=== PATIENT | male | born 1975 ===

== ENCOUNTER 2019-01-20 19:36 | Emergency (ER) | payer MEDICAID, OTHER ==
[2019-01-20 20:00] VITALS: TEMP 99.1
[2019-01-20] MEDS ORDERED: Sodium Chloride 0.9% 1,000 ML IV STA (20:39)
[2019-01-20] MEDS ORDERED: Iohexol 240 (50 ml) ONE (20:44)
[2019-01-20 20:48] LABS: HEMOGLOBIN 16.2 g/dL (14.0-18.0); MEAN CELL VOLUME 83.5 fl (80.0-105.0); MEAN CORPUSCULAR HEMOGLOBIN 28.7 pg (25.0-35.0); MEAN CORPUSCULAR HGB CONC 34.4 g/dl (31.0-37.0); MEAN PLATELET VOLUME 10.7 fl (7.0-11.0); RBC 5.64 10^6/uL (3.5-6.1); RED CELL DISTRIBUTION WIDTH 12.5 % (11.5-14.5); WHITE BLOOD COUNT 10.8 10^3/uL (4.5-11.0)
--- NOTE | 2019-01-20 20:57 | ED PDOC ---
Arrival/HPI - General Chief Complaint: GI Problem Time Seen by Provider: 01/20/19 20:19 Historian: Patient - History of Present Illness Narrative History of Present Illness (Text): 01/20/19 20:54 43 year old male, with no significant past medical history, presents to the emergency department complaining of painful area to the umbilical abdominal region. Patient states he notes some protuberance to the area, which he has had for a while, but has recently become painful. Patient states pain sometimes radiates to his groin. 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 Patient states he did vomit once today. Patient denies any diarrhea, urinary symptoms, fever, chills, chest pain, shortness of breath, headache, dizziness, or any other complaint. Time/Duration: Prior to Arrival Symptom Onset: Gradual Symptom Course: Unchanged Activities at Onset: Light Context: Work Past Medical History - Provider Review Nursing Documentation Reviewed: Yes - Infectious Disease Hx of Infectious Diseases: None - Cardiac Hx Cardiac Disorders: Yes - Pulmonary Hx Respiratory Disorders: No - Neurological Hx Neurological Disorder: No - HEENT Hx HEENT Disorder: No - Renal Hx Renal Disorder: No - Endocrine/Metabolic Hx Endocrine Disorders: Yes Hx Diabetes Mellitus Type 2: Yes - Hematological/Oncological Hx Blood Disorders: No - Integumentary Hx Dermatological Disorder: No - Musculoskeletal/Rheumatological Hx Musculoskeletal Disorders: No - Gastrointestinal Hx Gastrointestinal Disorders: No - Genitourinary/Gynecological Hx Genitourinary Disorders: No - Psychiatric Hx Psychophysiologic Disorder: No Hx Substance Use: No - Anesthesia Hx Anesthesia: No Family/Social History - Physician Review Nursing Documentation Reviewed: Yes Family/Social History: No Known Family HX Smoking Status: Never Smoked Hx Alcohol Use: Yes Frequency of alcohol use: Socially Hx Substance Use: No Allergies/Home Meds Allergies/Adverse Reactions: Allergies No Known Allergies Allergy (Verified 01/20/19 19:59) Home Medications: Home Meds Medication Instructions Recorded Confirmed Unobtainable 01/20/19 01/20/19 Review of Systems - Physician Review All systems were reviewed & negative as marked: Yes - Review of Systems Constitutional: absent: Fevers, Night Sweats Respiratory: absent: SOB Cardiovascular: absent: Chest Pain Gastrointestinal: Abdominal Pain, Vomiting. absent: Diarrhea Genitourinary Male: Normal. absent: Dysuria, Urinary Output Changes Neurological: absent: Headache, Dizziness Physical Exam Vital Signs Reviewed: Yes Vital Signs Temp Pulse Resp BP Pulse Ox 01/20/19 19:59 99.1 F 76 15 129/73 96 Temperature: Afebrile Blood Pressure: Normal Pulse: Regular Respiratory Rate: Normal Appearance: Positive for: Well-Appearing, Non-Toxic, Comfortable Pain Distress: None Mental Status: Positive for: Alert and Oriented X 3 - Systems Exam Head: Present: Atraumatic, Normocephalic Pupils: Present: PERRL Extroacular Muscles: Present: EOMI Conjunctiva: Present: Normal Mouth: Present: Moist Mucous Membranes Neck: Present: Normal Range of Motion Respiratory/Chest: Present: Clear to Auscultation, Good Air Exchange. No: Respiratory Distress, Accessory Muscle Use Cardiovascular: Present: Regular Rate and Rhythm, Normal S1, S2. No: Murmurs Abdomen: Present: Tenderness, Normal Bowel Sounds, Hernias (Umbilical hernia; reducibale, but tender to palpation). No: Distention Genitourinary Male: Present: Normal External Genitalia, Other (testes descended bilaterally). No: Hernias (no inguinal hernia), Testicle Swelling Back: Present: Normal Inspection Upper Extremity: Present: Normal Inspection. No: Cyanosis, Edema Lower Extremity: Present: Normal Inspection. No: Edema Neurological: Present: GCS=15, CN II-XII Intact, Speech Normal Skin: Present: Warm, Dry, Normal Color. No: Rashes Psychiatric: Present: Alert, Oriented x 3, Normal Insight, Normal Concentration Medical Decision Making ED Course and Treatment: 01/20/19 21:04 Impression: 43 year old male presents with umbilical hernia. Plan: -- CT ABD & Pelvis -- CMP, Lipase -- Toradol -- Urinalysis -- Reassess and disposition Prior Visits: Notes and results from previous visits were reviewed. Progress Notes: 01/21/19 02:57 EXAM: CT Abdomen and Pelvis with IV and oral contrast CLINICAL HISTORY: ABDOMINAL PAIN/HERNIA TECHNIQUE: Axial computed tomography images of the abdomen and pelvis with intravenous contrast. 1179.64 mGy-cm CONTRAST: With; OMNI 350 100 ml COMPARISON: None provided. FINDINGS: LUNG BASES: The lung bases appear clear. No pleural effusions are seen. LIVER: There is hepatomegaly. The liver measured 19.8 cm in the midclavicular line. GALLBLADDER AND BILE DUCTS: The gallbladder appears within normal limits. No radioopaque gallstones are seen. No biliary ductal dilatation is evident. PANCREAS: Unremarkable. SPLEEN: There is mild splenomegaly. The spleen measured 15.0 x 6.7 cm in craniocaudal and transverse dimensions respectively. ADRENAL GLANDS: Unremarkable. KIDNEYS, URETERS, AND BLADDER: The kidneys appear within normal limits. There is no hydronephrosis or hydroure ter. No urinary calculi are seen. The urinary bladder appeared normal in size and configuration. STOMACH AND BOWEL: Unremarkable appearance of the stomach and bowel. No evidence of bowel obstruction. No evidence suggesting enteritis or colitis. APPENDIX: No evidence of acute appendicitis on CT examination. PERITONEUM: No free fluid. No free air. A moderate sized paraumbilical hernia is noted which contains fat. Additionally, a small left inguinal hernia is noted which contains fat. LYMPH NODES: No lymphadenopathy is evident. REPRODUCTIVE: Unremarkable as visualized. VASCULATURE: No evidence of abdominal aortic aneurysm. BONES: No aggressive appearing osseous lesion. No acute osseous pathology evident. IMPRESSION: 1. No acute intra-abdominal or pelvic abnormality. 2. Hepatomegaly. 3. Splenomegaly. 4. Moderate size left paraumbilical hernia which contains fat. 5. Small left inguinal hernia containing fat. Electronically signed on January 20, 2019 11:55:46 PM EDT by: Zhou Tinoco M.D., M.B.A., Certified By [employer] Trained MRI and CT Specialist 01/21/19 04:27 Patient was seen by the surgeon in the ED.Hernia easily reducible .Patient w/o any pain.Ct results explained to patient.Prefers out patient follow up with the surgeon for consideration of repair.Full follow care instructions given. - RAD Interpretation Radiology Orders: 01/20/19 20:38 ABD PELVIS PO & IV CONTRAST [CT] Stat - Medication Orders Current Medication Orders: Sodium Chloride (Sodium Chloride 0.9%) 1,000 mls @ 999 mls/hr IV .Q1H1M STA Stop: 01/20/19 21:39 Discontinued Medications Ketorolac Tromethamine (Toradol) 30 mg IVP ONCE ONE Stop: 01/20/19 20:40 - Scribe Statement The provider has reviewed the documentation as recorded by the Mariolaibjuany Antunez Provider Scribe Attestation: All medical record entries made by the Scribe were at my direction and personally dictated by me. I have reviewed the chart and agree that the record accurately reflects my personal performance of the history, physical exam, medical decision making, and the department course for this patient. I have also personally directed, reviewed, and agree with the discharge instructions and disposition. Disposition/Present on Arrival - Present on Arrival Any Indicators Present on Arrival: No History of DVT/PE: No History of Uncontrolled Diabetes: No Urinary Catheter: No History of Decub. Ulcer: No History Surgical Site Infection Following: None - Disposition Have Diagnosis and Disposition been Completed?: Yes Diagnosis: Umbilical hernia Disposition: HOME/ ROUTINE Disposition Time: 04:25 Patient Plan: Discharge Patient Problems: Current Active Problems Problem Status Onset Umbilical hernia Acute Condition: GOOD Discharge Instructions (ExitCare): Abdominal Hernia (DC) Additional Instructions: Avoid lifting heavy objects/follow up with your surgeon this week/any recurrent symptoms i.e. pain/vomiting,ecc. return to the emergency room Referrals: Kranthi Luna MD [Staff Provider] - Follow up with primary Forms: [facility] (Sinhala), WORK NOTE
[2019-01-20 20:59] LABS: VENOUS BLOOD GAS BASE EXCESS 0.8 mmol/L (0.0-2.0); VENOUS BLOOD GAS PO2 128 mm/Hg (30-55); VENOUS BLOOD PH 7.39 (7.32-7.43)
[2019-01-20 21:04] LABS: BLOOD UREA NITROGEN 21 mg/dL (7-21); CALCIUM 9.1 mg/dL (8.4-10.5); GFR NON-AFRICAN AMERICAN > 60; LIPASE 106 U/L (23-300)
[2019-01-20 21:24] LABS: ALB/GLOB RATIO 1.3 (1.1-1.8); ALBUMIN 4.3 g/dL (3.0-4.8); ALT/SGPT 29 U/L (7-56); AST/SGOT 29 U/L (17-59)
[2019-01-20] MEDS ORDERED: Iohexol 350 MG/100 ML VIAL ONE (21:47)
[2019-01-21 01:39] LABS: PH,URINE 6.5 (4.7-8.0); URINE BILIRUBIN NEGATIVE (NEGATIVE); URINE BLOOD NEGATIVE (NEGATIVE); URINE GLUCOSE (UA) NEGATIVE (NEGATIVE); URINE LEUKOCYTE ESTERASE NEGATIVE Leu/uL (NEGATIVE); URINE PROTEIN NEGATIVE mg/dL (<30 mg/dL); URINE UROBILINOGEN 0.2 E.U./dL (<1 E.U./dL)
[2019-01-21 01:43] LABS: URINE APPEARANCE CLEAR (CLEAR); URINE COLOR YELLOW (YELLOW)
--- NOTE | 2019-01-21 04:02 | CP.PCM.PCO ---
Additional Comments - Additional Comments Additional Comments: General Surgery Dr. Colin 43 y/o M w/ para-umbilical hernia presents to the ED c/o abd pain x5 days. Pain constant and worse than usual w/ radiation to L groin. 1 episode vomiting. denies F/C, nausea, distention, D/C, dysuria. CT A/P showed fat-containing umbilical hernia. Hernia was reduced in the ED and pain improved. Explained benefits of surgery now vs later. With hernia reduced and pain improving, pt elected for outpatient hernia repair when off work. Instructed pt to follow up w/ surgery attending as outpatient to schedule elective hernia repair. Also recommended pt return to the ED if pain returns/worsens, hernia does not reduce, &/or nausea/vomiting develop. Pt expressed understanding. Plan was discussed w/ ED and surgical attending. Milli Hough PGY3
[2019-01-21 05:12] VITALS: BP 127/71; PULSE 75; RESP 16; O2SAT 98
--- NOTE | 2019-01-21 11:06 | CT ---
Date of service: 01/20/2019 PROCEDURE: CT Abdomen and Pelvis with contrast HISTORY: abdominal pain/hernia COMPARISON: None. TECHNIQUE: Intravenous contrast dose: 100 cc Omnipaque 350. Radiation dose: Total exam DLP = 1179.64 mGy-cm. This CT exam was performed using one or more of the following dose reduction techniques: Automated exposure control, adjustment of the mA and/or kV according to patient size, and/or use of iterative reconstruction technique. FINDINGS: LOWER THORAX: Unremarkable. LIVER: Hepatomegaly. Hepatic steatosis. No focal masses. No intrahepatic bile duct dilatation or perihepatic ascites. GALLBLADDER AND BILE DUCTS: Unremarkable. PANCREAS: Unremarkable. No gross lesion or ductal dilatation. SPLEEN: Unremarkable. ADRENALS: Unremarkable. No mass. KIDNEYS AND URETERS: Unremarkable. No hydronephrosis. No solid mass. VASCULATURE: Unremarkable. No aortic aneurysm. No atherosclerotic calcification or mural plaque present. BOWEL: Diverticulosis without an acute inflammatory component or other associated pathologic process. APPENDIX: A normal appendix is visualized in it's entirety. PERITONEUM: Unremarkable. No free fluid. No free air. LYMPH NODES: Unremarkable. No enlarged lymph nodes. BLADDER: Unremarkable. REPRODUCTIVE: Unremarkable. BONES: No acute fracture. OTHER FINDINGS: Large anterior abdominal wall hernia containing fat only. IMPRESSION: Hepatomegaly/hepatic steatosis. Periumbilical anterior abdominal wall hernia containing fat only. No acute findings related to/ accounting for the clinical presentation. Concordant results (preliminary interpretation) provided by [facility]. Procedure Completed: 22:42 Preliminary Report: Interpreted and electronically signed: 23:55. Final Interpretation: 11:03. January 21, 2019.
== END 2019-01-21 05:00 | disposition home or self-care (01) ==
LOC: ED 19:36
DX: K42.9 Umbilical hernia without obstruction or gangrene (principal); E11.9 Type 2 diabetes mellitus without complications
CPT/HCPCS: 74177; 80053; 81003; 82803; 83690; 85027; 96361; 96374; 99284; J1885; J7030; Q9966; Q9967

== ENCOUNTER 2019-01-21 16:07 | Observation (INO) | payer MEDICAID, OTHER ==
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
[2019-01-21] MEDS ORDERED: Dextrose 5%/0.45% NS 1,000 ML IV SCH (17:45)
[2019-01-21 18:12] LABS: INR 0.87; PARTIAL THROMBOPLASTIN TIME 30.9 Seconds (26.9-38.3)
[2019-01-21] MEDS: Sodium Chloride 0.9% 1,000 ML IV SCH (18:21)
[2019-01-21 18:22] LABS: PROTHROMBIN TIME 9.7 SECONDS (9.4-12.5)
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
--- NOTE | 2019-01-21 20:28 | CARD ---
APPROVED REPORT Date of service: 01/21/2019 EKG Measurement Heart [id number] <Conclusion> Normal sinus rhythm Normal ECG
[2019-01-21] MEDS ORDERED: Dextrose 50% SYRINGE Inj (50 ml) IV PRN (21:23)
[2019-01-21] MEDS ORDERED: Insulin Reg-MEDIUM-Coverage SC SCH (22:00)
[2019-01-22 00:08] VITALS: BMI 40.3
[2019-01-22] MEDS ORDERED: Pneumococcal 23-Valent Vaccine IM ONE (00:08)
[2019-01-22] MEDS: Insulin Reg-LOW-Coverage SC SCH ×3 (06:09→17:02)
[2019-01-22 07:23] LABS: BASO # 0.01 K/mm3 (0.0-2.0); BASO % 0.1 % (0.0-3.0); EOS # 0.3 (0.0-0.7); EOS % 3.9 % (1.5-5.0); HEMOGLOBIN 14.4 g/dL (14.0-18.0); LYMPH # 2.8 (1.2-3.4); LYMPH % 34.1 % (22.0-35.0); MEAN CELL VOLUME 84.5 fl (80.0-105.0); MEAN CORPUSCULAR HEMOGLOBIN 27.6 pg (25.0-35.0); MEAN CORPUSCULAR HGB CONC 32.7 g/dl (31.0-37.0); MEAN PLATELET VOLUME 10.3 fl (7.0-11.0); MONO # 0.4 (0.1-0.6); RBC 5.21 10^6/uL (3.5-6.1); RED CELL DISTRIBUTION WIDTH 12.4 % (11.5-14.5); WHITE BLOOD COUNT 8.3 10^3/uL (4.5-11.0)
[2019-01-22 07:32] LABS: INR 0.96; PARTIAL THROMBOPLASTIN TIME 31.5 Seconds (26.9-38.3); PROTHROMBIN TIME 10.9 SECONDS (9.4-12.5)
[2019-01-22 07:46] LABS: ALB/GLOB RATIO 1.3 (1.1-1.8); ALBUMIN 3.6 g/dL (3.0-4.8); ALT/SGPT 26 U/L (7-56); AST/SGOT 23 U/L (17-59); BLOOD UREA NITROGEN 16 mg/dL (7-21); CALCIUM 8.5 mg/dL (8.4-10.5); GFR NON-AFRICAN AMERICAN > 60
[2019-01-22] MEDS ORDERED: Bupivacaine 0.5% 50 ML IJ ONE (10:44)
[2019-01-22] MEDS ORDERED: Lidocaine 1% Inj (20ml) ONE (10:44)
[2019-01-22] MEDS ORDERED: Propofol 10 mg/ml Inj (20 ML) ONE (11:43)
[2019-01-22] MEDS ORDERED: Midazolam 2 MG/2 ML VIAL ONE (11:44)
[2019-01-22] MEDS ORDERED: Rocuronium 10 mg/ml (5 ml) ONE (11:44)
[2019-01-22] MEDS ORDERED: Succinylcholine 200 mg/10 ml Inj IV ONE (11:44)
[2019-01-22] MEDS ORDERED: CeFAZolin 1 gm in NS 100ml IVPB ONE (12:22)
[2019-01-22] MEDS ORDERED: Neostigmine Methylsulfate 3mg/3ml Syringe IV ONE (12:45)
[2019-01-22] MEDS ORDERED: Bupivacaine 0.5% Inj(30mL) IJ ONE (13:14)
[2019-01-22] MEDS: HYDROmorphone 0.5 mg/0.5 ml ISec IVP PRN ×2 (13:38→13:53)
--- NOTE | 2019-01-22 13:38 | PCM.SURG1 ---
Surgeon's Initial Post Op Note - Surgeon's Notes Surgeon: Dr. Colin Freight Shipping Agent: Dr. Hough PGY3 Type of Anesthesia: General Endo Pre-Operative Diagnosis: incarcerated ventral hernia Operative Findings: see dictation Post-Operative Diagnosis: same Operation Performed: open ventral hernia repair with mesh Specimen/Specimens Removed: none Estimated Blood Loss: EBL {In ML}: 5 Blood Products Given: N/A Drains Used: No Drains Post-Op Condition: Good Date of Surgery/Procedure: 01/22/19 Time of Surgery/Procedure: 13:38
[2019-01-22] MEDS ORDERED: Oxycodone/Acetaminophen 5/325 mg Tab PO PRN (13:41)
[2019-01-22] MEDS ORDERED: HYDROmorphone 0.5 mg/0.5 ml ISec ONE ×2 (13:41→13:56)
[2019-01-22] MEDS ORDERED: Lactated Ringer's 1,000 ML IV SCH (13:45)
[2019-01-22 13:51] VITALS: RESP 16; TEMP 98.4; O2SAT 95
[2019-01-22 14:39] VITALS: BP 122/72; PULSE 81
[2019-01-22] MEDS: Sodium Chloride 0.9% 1,000 ML IV SCH (15:00)
[2019-01-22] MEDS ORDERED: Insulin Reg-LOW-Coverage SC SCH (17:00)
--- NOTE | 2019-01-22 19:33 | CP.PCM.DIS ---
<MikeBridger romano - Last Filed: 01/22/19 19:22> Provider - Provider Date of Admission: 01/21/19 17:46 Attending physician: Mary Alice Duggan MD Primary care physician: NO PRIMARY CARE PROVIDER Consults: 01/21/19 16:22 Consult [Physician Consult] Stat Comment: call Consulting Provider: Addy Colin Consulting Physician: Addy Colin Reason for Consult: hernia 01/22/19 00:09 Diabetic Education Referral Routine Comment: TEACHING NEEDED,PT IS NOT MEDS,IMPT. OF COMPLIANCE Physician Instructions: Reason For Exam: EVALUATION'' Time Spent in preparation of Discharge (in minutes): 40 Diagnosis - Discharge Diagnosis (1) Umbilical hernia Status: Acute Hospital Course - Lab Results Lab Results: Most Recent Lab Values WBC 8.3 10^3/uL (4.5-11.0) D 01/22/19 07:05 RBC 5.21 10^6/uL (3.5-6.1) 01/22/19 07:05 Hgb 14.4 g/dL (14.0-18.0) 01/22/19 07:05 Hct 44.0 % (42.0-52.0) 01/22/19 07:05 MCV 84.5 fl (80.0-105.0) 01/22/19 07:05 MCH 27.6 pg (25.0-35.0) 01/22/19 07:05 MCHC 32.7 g/dl (31.0-37.0) 01/22/19 07:05 RDW 12.4 % (11.5-14.5) 01/22/19 07:05 Plt Count 242 10^3/uL (120.0-450.0) 01/22/19 07:05 MPV 10.3 fl (7.0-11.0) 01/22/19 07:05 Neut % (Auto) 56.9 % (50.0-68.0) 01/22/19 07:05 Lymph % (Auto) 34.1 % (22.0-35.0) 01/22/19 07:05 Hettinger % (Auto) 5.0 % (1.0-6.0) 01/22/19 07:05 Eos % (Auto) 3.9 % (1.5-5.0) 01/22/19 07:05 Baso % (Auto) 0.1 % (0.0-3.0) 01/22/19 07:05 Lymph # (Auto) 2.8 (1.2-3.4) 01/22/19 07:05 Hettinger # (Auto) 0.4 (0.1-0.6) 01/22/19 07:05 Eos # (Auto) 0.3 (0.0-0.7) 01/22/19 07:05 Baso # (Auto) 0.01 K/mm3 (0.0-2.0) 01/22/19 07:05 Absolute Neuts (auto) 4.70 (1.4-6.5) 01/22/19 07:05 PT 10.9 SECONDS (9.4-12.5) 01/22/19 07:05 INR 0.96 01/22/19 07:05 APTT 31.5 Seconds (26.9-38.3) 01/22/19 07:05 Sodium 140 mmol/L (132-148) 01/22/19 07:05 Potassium 4.3 mmol/L (3.6-5.0) 01/22/19 07:05 Chloride 107 mmol/L (98-107) 01/22/19 07:05 Carbon Dioxide 29 mmol/L (21-33) 01/22/19 07:05 Anion Gap 9 (10-20) L 01/22/19 07:05 BUN 16 mg/dL (7-21) 01/22/19 07:05 Creatinine 0.7 mg/dl (0.8-1.5) L 01/22/19 07:05 Est GFR ( Amer) > 60 01/22/19 07:05 Est GFR (Non-Af Amer) > 60 01/22/19 07:05 POC Glucose (mg/dL) 122 mg/dL (65-110) H 01/22/19 11:28 Random Glucose 215 mg/dL (70-110) H 01/22/19 07:05 Calcium 8.5 mg/dL (8.4-10.5) 01/22/19 07:05 Total Bilirubin 0.4 mg/dL (0.2-1.3) 01/22/19 07:05 AST 23 U/L (17-59) 01/22/19 07:05 ALT 26 U/L (7-56) 01/22/19 07:05 Alkaline Phosphatase 51 U/L (38-126) 01/22/19 07:05 Troponin I < 0.01 ng/mL 01/21/19 17:45 Total Protein 6.4 g/dL (5.8-8.3) 01/22/19 07:05 Albumin 3.6 g/dL (3.0-4.8) 01/22/19 07:05 Globulin 2.8 gm/dL 01/22/19 07:05 Albumin/Globulin Ratio 1.3 (1.1-1.8) 01/22/19 07:05 Blood Type A POSITIVE 01/22/19 07:05 Blood Type Confirm A POSITIVE 01/22/19 08:45 Antibody Screen Negative 01/22/19 07:05 BBK History Checked No verified bt 01/22/19 07:05 - Hospital Course Hospital Course: Bridger Mike DO PGY1 Internal Medicine Router Operator Radial - Hospitalist Discharge Summary Upon admission, Patient is a 43M w/ PMH DM, HLD c/o worsening pain from his hernia over the past 10 days. Patient reported hernia has been present over the 6-7 years. Pain is described as a sharp intermittent pain which worsens w/ eating. He denies any melena or hematochezia. Patient reports pain is located in the periumbilical region however it does radiate bilaterally in a belt like distribution w/ some radiation into the lower abdomen/ groin. Patient also reports some complaints of bilateral upper chest pain. He reports pain is a sharp sensation which radiates in to his neck and BL upper extremities; worse w/ exertion and palpitation. Patient underwent open ventral hernia repair w/ mesh on 01/22 w/ Dr. Colin. Patient was seen and evaluated post operatively; tolerating pain well ; tolerating diet well. Voicing no complaints. Appt was made for follow up at [facility]; He was also told to follow up w/ Dr. Colin He was explained that he will need to follow up with [facility] care in order to attend his apt w/ Dr. Sy at [facility]. Patient was seen, examined and discussed w/ attending Dr. Olga Lidia Mike DO PGY1 Discharge Exam - Head Exam Head Exam: ATRAUMATIC, NORMOCEPHALIC - Eye Exam Eye Exam: EOMI, Normal appearance, PERRL - Respiratory Exam Respiratory Exam: Clear to PA & Lateral, UNREMARKABLE - Cardiovascular Exam Cardiovascular Exam: RRR. absent: Systolic Murmur - GI/Abdominal Exam GI & Abdominal Exam: Distended, Normal Bowel Sounds, Tenderness (Mild diffuse ). absent: Unremarkable Additional comments: Midline Dressing CDI - Extremities Exam Extremities exam: normal capillary refill, pedal pulses present - Neurological Exam Neurological exam: Alert, CN II-XII Intact, Oriented x3 - Psychiatric Exam Psychiatric exam: Normal Affect, Normal Mood - Skin Skin Exam: Dry, Normal Color, Warm Discharge Plan - Discharge Medications Prescriptions: metFORMIN ER [glucoPHAGE XR] 500 mg PO BID #60 ter oxyCODONE/Acetaminophen [Percocet 5/325 mg Tab] 1 ea PO Q12 #10 tab - Follow Up Plan Condition: GOOD Disposition: HOME/ ROUTINE Instructions: Type 2 Diabetes, Hernia Repair (DC), Diabetic Meal Planning , Open Herniorrhaphy (DC) Additional Instructions: You have been discharged from [facility]. If you notice any severe pain, bleeding or nausea please go to the nearest emergency room. Please follow up w/ Dr. Sy 01/29/2019 @ 2pm Please follow up w/ Dr. Colin within 3-5 days of discharge Start taking metformin 500mg twice a day Take percocet 5/325mg as needed for pain every 12 hours; This is a narcotic pain medication do not take w/ alcohol, operate cars/machinery Referrals: PCP,NO [Primary Care Provider] - <Mary Alice Duggan - Last Filed: 01/23/19 13:59> Provider - Provider Date of Admission: 01/21/19 17:46 Attending physician: Mary Alice Duggan MD Primary care physician: ESTRELLITA PRIMARY CARE PROVIDER Consults: 01/21/19 16:22 Consult [Physician Consult] Stat Comment: call Consulting Provider: Addy Colin Consulting Physician: Addy Colin Reason for Consult: hernia 01/22/19 00:09 Diabetic Education Referral Routine Comment: TEACHING NEEDED,PT IS NOT MEDS,IMPT. OF COMPLIANCE Physician Instructions: Reason For Exam: EVALUATION'' Hospital Course - Lab Results Lab Results: Most Recent Lab Values WBC 8.3 10^3/uL (4.5-11.0) D 01/22/19 07:05 RBC 5.21 10^6/uL (3.5-6.1) 01/22/19 07:05 Hgb 14.4 g/dL (14.0-18.0) 01/22/19 07:05 Hct 44.0 % (42.0-52.0) 01/22/19 07:05 MCV 84.5 fl (80.0-105.0) 01/22/19 07:05 MCH 27.6 pg (25.0-35.0) 01/22/19 07:05 MCHC 32.7 g/dl (31.0-37.0) 01/22/19 07:05 RDW 12.4 % (11.5-14.5) 01/22/19 07:05 Plt Count 242 10^3/uL (120.0-450.0) 01/22/19 07:05 MPV 10.3 fl (7.0-11.0) 01/22/19 07:05 Neut % (Auto) 56.9 % (50.0-68.0) 01/22/19 07:05 Lymph % (Auto) 34.1 % (22.0-35.0) 01/22/19 07:05 Hettinger % (Auto) 5.0 % (1.0-6.0) 01/22/19 07:05 Eos % (Auto) 3.9 % (1.5-5.0) 01/22/19 07:05 Baso % (Auto) 0.1 % (0.0-3.0) 01/22/19 07:05 Lymph # (Auto) 2.8 (1.2-3.4) 01/22/19 07:05 Hettinger # (Auto) 0.4 (0.1-0.6) 01/22/19 07:05 Eos # (Auto) 0.3 (0.0-0.7) 01/22/19 07:05 Baso # (Auto) 0.01 K/mm3 (0.0-2.0) 01/22/19 07:05 Absolute Neuts (auto) 4.70 (1.4-6.5) 01/22/19 07:05 PT 10.9 SECONDS (9.4-12.5) 01/22/19 07:05 INR 0.96 01/22/19 07:05 APTT 31.5 Seconds (26.9-38.3) 01/22/19 07:05 Sodium 140 mmol/L (132-148) 01/22/19 07:05 Potassium 4.3 mmol/L (3.6-5.0) 01/22/19 07:05 Chloride 107 mmol/L (98-107) 01/22/19 07:05 Carbon Dioxide 29 mmol/L (21-33) 01/22/19 07:05 Anion Gap 9 (10-20) L 01/22/19 07:05 BUN 16 mg/dL (7-21) 01/22/19 07:05 Creatinine 0.7 mg/dl (0.8-1.5) L 01/22/19 07:05 Est GFR ( Amer) > 60 01/22/19 07:05 Est GFR (Non-Af Amer) > 60 01/22/19 07:05 POC Glucose (mg/dL) 288 mg/dL (65-110) H 01/22/19 15:59 Random Glucose 215 mg/dL (70-110) H 01/22/19 07:05 Calcium 8.5 mg/dL (8.4-10.5) 01/22/19 07:05 Total Bilirubin 0.4 mg/dL (0.2-1.3) 01/22/19 07:05 AST 23 U/L (17-59) 01/22/19 07:05 ALT 26 U/L (7-56) 01/22/19 07:05 Alkaline Phosphatase 51 U/L (38-126) 01/22/19 07:05 Troponin I < 0.01 ng/mL 01/21/19 17:45 Total Protein 6.4 g/dL (5.8-8.3) 01/22/19 07:05 Albumin 3.6 g/dL (3.0-4.8) 01/22/19 07:05 Globulin 2.8 gm/dL 01/22/19 07:05 Albumin/Globulin Ratio 1.3 (1.1-1.8) 01/22/19 07:05 Blood Type A POSITIVE 01/22/19 07:05 Blood Type Confirm A POSITIVE 01/22/19 08:45 Antibody Screen Negative 05/30/19 07:05 BBK History Checked No verified bt 01/22/19 07:05 Attending/Attestation - Attestation I have personally seen and examined this patient.: Yes I have fully participated in the care of the patient.: Yes I have reviewed all pertinent clinical information, including history, physical exam and plan: Yes Notes (Text): 01/23/19 13:58 Attending note; Patient seen and examined with resident. Patient is alert and awake. Complaining of mild abdominal discomfort. Complaining of nausea. Denies any chest pain, shortness of breath. Patient is a 43-year-old male with PMH DM, HLD not on medications is admitted with abdominal pain and nausea and vomiting for the past few days. 1. Status post umbilical hernia repair. Patient is tolerating diet. Denies any nausea, vomiting. Ambulating without any difficulty. Surgery evaluation appreciated. 2. Diabetes; patient is not on any medications at home. Started on metformin. 3. Obesity; diet, exercise and weight reduction advised. Patient will be discharged home today. Follow-up with surgery in 1 week. Upon discharge the patient will follow up with [facility] clinic.
--- NOTE | 2019-01-23 14:58 | OP ---
PROCEDURE DATE: 01/22/2019 SURGEON: Addy Colin MD PEARL GLUE DRIER: Milli Hough, PGY-3. TYPE OF ANESTHESIA: General endotracheal. ANESTHESIOLOGIST: Olivier Metz MD PREOPERATIVE DIAGNOSIS: Incarcerated umbilical hernia. POSTOPERATIVE DIAGNOSIS: Incarcerated umbilical hernia. PROCEDURE PERFORMED: Open ventral hernia repair with mesh. EBL: 5 mL. SPECIMENS: No specimens. DESCRIPTION OF PROCEDURE: After consent was obtained, the patient was brought to the operating room and placed on the operating table in supine position. General anesthesia was induced, and the patient was then prepped and draped in the usual sterile fashion. A timeout was completed verifying correct patient, procedure site, positioning. Antibiotics were administered prior to the incision. A curvilinear infraumbilical incision was made in the abdominal wall and carried down through the subcutaneous fat to the fascia below. The hernia sac was then dissected from the surrounding adipose tissue using blunt dissection and looped with a Kimberly clamp dividing the sac from the surrounding tissue. Cautery was then used to divide the umbilical stalk from the hernia sac and the abdominal fascia. The hernia contents were reduced and the peritoneum was bluntly dissected off of the posterior fascia to allow for an overlay closure of the fascial defect. A small Ventralex patch mesh was used to cover the fascial defect and 0 Prolene sutures were used to suture the mesh in place while concurrently closing the fascial defect. During the hernia dissection, the anterior fascia was cut at either end of the hernia. This was closed using 0 Prolene interrupted stitches. Interrupted 3-0 Vicryl sutures were used to approximate the umbilicus recreating the belly button as well as closing the deep dermis. A total of 10mL of 0.5% Marcaine was then injected into the skin and the subcutaneous fat. The skin was closed using a running 4-0 Monocryl and Dermabond was applied to the skin. A pressure dressing was then placed within the umbilicus to prevent seroma formation. The patient tolerated the procedure well, was extubated in the OR and taken to the PACU in stable condition.. Milli Hough, DO Addy Colin MD KELLEY
== END 2019-01-22 21:27 | disposition home or self-care (01) ==
LOC: ED 16:07 → ERH 17:46 → 5RSO 19:15
PROVIDERS: ADMIT Internal Medicine; ATTEND Internal Medicine
DX: K42.0 Umbilical hernia with obstruction, without gangrene (principal); E11.9 Type 2 diabetes mellitus without complications; I10 Essential (primary) hypertension; E78.5 Hyperlipidemia, unspecified; E66.9 Obesity, unspecified; Z68.41 Body mass index [BMI] 40.0-44.9, adult
CPT/HCPCS: 36415; 49561; 49568; 80053; 82948; 84484; 85025; 85610; 85730; 86850; 86900; 93005; 96374; 96375; 99284; C9113; G0378; J0330; J0690; J1100; J1170; J1885; J2001; J2250; J2405; J2704; J2710; J3010; J7030; J7120